=== PATIENT | female | born 1950 | race Caucasian/White ===

== ENCOUNTER 2017-02-26 14:35 | Day surgery (SDC) | payer BC, OTHER ==
[2017-02-18 14:18] VITALS: BP 142/95
[~2017-02-26] VITALS: Ht 157.5 cm; Wt 69.0 kg
[~2017-02-26 14:35] MED LIST: ATOR20TA9 PO; BUPIVACAINE/PF 0.5% ONE; CEFAZOLIN 1,000 MG ONE; CHOL5000 PO; DEXAMETHASONE 4 MG/ML, 1ML ONE; DICL100G19 TD; EPINEPHRINE 1 MG/ML, 1ML ONE; ESTR-22 TD; ESTR1TAB13 PO; FAMO-79 PO; HYDR-3237 PO; KETOROLAC 30 MG/1 ML ONE; LIDOCAINE/PF 1%, 30ML ONE; LISI5TAB7 PO; LORA10TA75 PO; LOSA25TA5 PO; MELO15TA6 PO; METO25TA35 PO; METOPROLOL 1 MG/ML, 5ML ONE; NAPR220C2 PO; OMEG1CAP24 PO; OMEP-110 PO; ONDANSETRON 2MG/ML, 2ML ONE; PROPOFOL 10 MG/ML, 20ML ONE; SULF1TAB24 PO
[2017-02-26] MEDS ORDERED: LACTATED RINGERS 1,000 ML IV SCH (15:17)
[2017-02-26] MEDS ORDERED: FENTANYL PF 100 MCG/2ML ONE ×3 (15:57→17:33)
[2017-02-26] MEDS ORDERED: MIDAZOLAM 1 MG/ML, 2ML ONE (15:57)
[2017-02-26] MEDS ORDERED: NAPROXEN 500 MG TABLET PO PRN (16:30)
[2017-02-26] MEDS ORDERED: hydrALAzine 20 MG/ML, 1ML IV PRN (17:30)
[2017-02-26] MEDS ORDERED: HYDROmorphone 1 MG/ML, 1ML IV PRN (17:30)
[2017-02-26] MEDS ORDERED: HYDROcodone/APAP 7.5-325MG/15ML UDC PO PRN (17:30)
[2017-02-26] MEDS ORDERED: MEPERIDINE/PF 25MG/0.5ML IVPush PRN (17:30)
[2017-02-26] MEDS ORDERED: DIAZEPAM 5 MG/ML, 2ML IVPush PRN (17:30)
[2017-02-26] MEDS ORDERED: PROMETHAZINE 25 MG/ML, 1ML IV PRN (17:30)
[2017-02-26] MEDS ORDERED: MIDAZOLAM 1 MG/ML, 2ML IV PRN (17:30)
[2017-02-26] MEDS ORDERED: ONDANSETRON 2MG/ML, 2ML IVPush PRN (17:30)
[2017-02-26] MEDS ORDERED: ALBUTEROL SULFATE 2.5 MG/3 ML NPPB PRN (17:30)
[2017-02-26] MEDS ORDERED: METOPROLOL 1 MG/ML, 5ML IV PRN (17:30)
[2017-02-26] MEDS ORDERED: LABETALOL 5MG/ML, 20ML IV PRN (17:30)
[2017-02-26] MEDS ORDERED: EPHEDRINE 50 MG/ML, 1ML IVPush PRN (17:30)
[2017-02-26] MEDS ORDERED: ACETAMINOPHEN 325 MG TABLET PO PRN (17:30)
[2017-02-26] MEDS ORDERED: MEPERIDINE/PF 25MG/0.5ML ONE (17:33)
[2017-02-26] MEDS ORDERED: HYDROcodone/APAP 7.5-325MG/15ML UDC ONE (17:34)
[2017-02-26] MEDS: FENTANYL PF 100 MCG/2ML IV PRN ×2 (17:50→17:58)
[2017-02-26 19:13] VITALS: BP 151/95
[2017-02-26] MEDS ORDERED: HYDR-879 PO (19:21)
[2017-02-27] MEDS ORDERED: LORATADINE 10 MG TABLET PO SCH (09:00)
[2017-02-27] MEDS ORDERED: ESTRADIOL HOMEMEDPO SCH (09:00)
[2017-02-27] MEDS ORDERED: CHOLECALCIFEROL 1,000 UNIT TABLET PO SCH (09:00)
[2017-02-27] MEDS ORDERED: ATORVASTATIN 20 MG TABLET PO SCH (09:00)
[2017-02-27] MEDS ORDERED: NORETHINDRONE ACET HOMEMEDPO SCH (09:00)
[2017-02-27] MEDS ORDERED: LOSARTAN 25MG TABLET PO SCH (09:00)
[2017-02-27] MEDS ORDERED: FAMOTIDINE 20 MG TABLET PO SCH (09:00)
[2017-02-27] MEDS ORDERED: METOPROLOL SUCCINATE 25 MG TAB.ER.24H PO SCH (09:00)
== END 2017-02-26 20:40 | disposition home or self-care (01) ==
LOC: OR 14:35 → 4NOR 18:21 → OR 20:40
PROVIDERS: ATTEND Orthopaedic Surgery
DX: S83.241A Other tear of medial meniscus, current injury, right knee, initial encounter (principal); S83.281A Other tear of lateral meniscus, current injury, right knee, initial encounter; S83.232A Complex tear of medial meniscus, current injury, left knee, initial encounter; S83.282A Other tear of lateral meniscus, current injury, left knee, initial encounter; M94.262 Chondromalacia, left knee; M94.261 Chondromalacia, right knee; M17.0 Bilateral primary osteoarthritis of knee; K21.9 Gastro-esophageal reflux disease without esophagitis; I10 Essential (primary) hypertension; Z91.09 Other allergy status, other than to drugs and biological substances; Z88.8 Allergy status to other drugs, medicaments and biological substances; Z88.6 Allergy status to analgesic agent; X58.XXXA Exposure to other specified factors, initial encounter; Y93.89 Activity, other specified; Y92.89 Other specified places as the place of occurrence of the external cause; Y99.8 Other external cause status
CPT/HCPCS: 29880; 93005; J0690; J1100; J1885; J2175; J2250; J2405; J2704; J3010; J3490; J7120; J0171

== ENCOUNTER → 2018-07-30 | Outpatient (CLI) | payer BC ==
[~2018-07-30] MED LIST changes: +ASPI-650 PO; +ATOR20TA37 PO; -ATOR20TA9 PO; -BUPIVACAINE/PF 0.5% ONE; -CEFAZOLIN 1,000 MG ONE; +CHOL10003 PO; -DEXAMETHASONE 4 MG/ML, 1ML ONE; -EPINEPHRINE 1 MG/ML, 1ML ONE; +HYDR-3622 PO; -KETOROLAC 30 MG/1 ML ONE; -LIDOCAINE/PF 1%, 30ML ONE; +LOSA25TA25 PO; -LOSA25TA5 PO; +METO25TA91 PO; -METOPROLOL 1 MG/ML, 5ML ONE; +NITR0.4T SL; -ONDANSETRON 2MG/ML, 2ML ONE; -PROPOFOL 10 MG/ML, 20ML ONE; +SPIR25TA5 PO; +VIT1CAPS11 PO
== END | disposition home or self-care (01) ==
LOC: STAR 15:04
PROVIDERS: ATTEND Orthopaedic Surgery
DX: Z01.818 Encounter for other preprocedural examination (principal); M17.11 Unilateral primary osteoarthritis, right knee
CPT/HCPCS: 87081

== ENCOUNTER 2018-08-07 09:24 | Outpatient (CLI) | payer BC ==
[~2018-08-07] VITALS: Ht 157.5 cm; Wt 67.0 kg
[2018-08-07] MEDS ORDERED: LACTATED RINGERS 1,000 ML IV SCH (09:56)
[2018-08-07 09:59] VITALS: BP 127/86
[2018-08-07] MEDS ORDERED: ACETAMINOPHEN 500 MG TABLET PO ONE (10:00)
[2018-08-07] MEDS ORDERED: GABAPENTIN 300 MG CAPSULE PO ONE (10:00)
[2018-08-07] MEDS ORDERED: BUPIVACAINE/PF-EPI 0.5% 1:200K ONE (10:20)
== END 2018-08-07 23:59 | disposition home or self-care (01) ==
LOC: CLISVCS 09:24 → OUT 09:24 → EDSTATUS 20:30 → CLISVCS 23:59
PROVIDERS: ATTEND Orthopaedic Surgery
DX: M25.561 Pain in right knee (principal); Z53.9 Procedure and treatment not carried out, unspecified reason; Z96.651 Presence of right artificial knee joint; Z88.8 Allergy status to other drugs, medicaments and biological substances; Z91.048 Other nonmedicinal substance allergy status; Z91.09 Other allergy status, other than to drugs and biological substances
CPT/HCPCS: 93005; J2250; J3010

== ENCOUNTER 2018-09-04 10:45 | Observation (INO) | payer BC ==
[~2018-09-04] VITALS: Ht 157.5 cm; Wt 68.5 kg
[~2018-09-04 10:45] MED LIST changes: +ACETAMINOPHEN 500 MG TABLET PO ONE; +DIAZEPAM 5 MG TABLET PO ONE; +GABAPENTIN 300 MG CAPSULE PO ONE; +PLEASE ENTER HEIGHT AND WEIGHT MC SCH
[2018-09-04 11:43] VITALS: BP 146/88
[2018-09-04] MEDS ORDERED: ROPIvacaine/PF 0.5%, 20 ML ONE (12:37)
[2018-09-04] MEDS ORDERED: TRANEXAMIC ACID 100 MG/ML, 10ML ONE (12:37)
[2018-09-04] MEDS ORDERED: LACTATED RINGERS 1,000 ML IV SCH (12:48)
[2018-09-04] MEDS ORDERED: FENTANYL PF 250 MCG/5ML ONE (12:52)
[2018-09-04] MEDS ORDERED: MIDAZOLAM 1 MG/ML, 2ML ONE (12:52)
[2018-09-04] MEDS ORDERED: LIDOCAINE 2%, 6 ML JEL.PF.APP MM ONE (12:53)
[2018-09-04] MEDS ORDERED: ACETAMINOPHEN 500 MG TABLET PO ONE (13:00)
[2018-09-04] MEDS ORDERED: GABAPENTIN 300 MG CAPSULE PO ONE (13:00)
[2018-09-04] MEDS ORDERED: DIAZEPAM 5 MG TABLET PO ONE (13:00)
[2018-09-04] MEDS ORDERED: GLYCOPYRROLATE 0.2MG/1ML, 5ML ONE (13:22)
[2018-09-04] MEDS ORDERED: KETOROLAC 30 MG/1 ML ONE (13:22)
[2018-09-04] MEDS ORDERED: METOPROLOL 1 MG/ML, 5ML ONE (13:22)
[2018-09-04] MEDS ORDERED: ROPIvacaine/PF 0.5%, 20 ML INFIL ONE (13:58)
[2018-09-04] MEDS ORDERED: hydrALAzine 20 MG/ML, 1ML IV PRN (14:00)
[2018-09-04] MEDS ORDERED: ALBUTEROL/IPRATROPIUM 2.5MG/0.5MG, 3 ML NPPB PRN (14:00)
[2018-09-04] MEDS ORDERED: MEPERIDINE/PF 25MG/0.5ML IVPush PRN (14:00)
[2018-09-04] MEDS ORDERED: SCOPOLAMINE PATCH, 1.5MG PATCH.TD72 TD PRN (14:00)
[2018-09-04] MEDS ORDERED: FENTANYL PF 100 MCG/2ML IV PRN (14:00)
[2018-09-04] MEDS ORDERED: HYDROcodone/APAP 7.5-325MG/15ML UDC PO PRN (14:00)
[2018-09-04] MEDS ORDERED: PROMETHAZINE 25 MG/ML, 1ML IV PRN (14:00)
[2018-09-04] MEDS ORDERED: MIDAZOLAM 1 MG/ML, 2ML IV PRN (14:00)
[2018-09-04] MEDS ORDERED: METOPROLOL 1 MG/ML, 5ML IV PRN (14:00)
[2018-09-04] MEDS ORDERED: ONDANSETRON 2MG/ML, 2ML IV PRN (14:00)
[2018-09-04] MEDS ORDERED: HYDROmorphone 2 MG/ML, 1ML IVPush PRN (14:00)
[2018-09-04] MEDS ORDERED: ONDANSETRON 2MG/ML, 2ML ONE (14:18)
[2018-09-04] MEDS ORDERED: DEXAMETHASONE 4 MG/ML, 1ML ONE (14:18)
[2018-09-04] MEDS ORDERED: PROPOFOL 10 MG/ML, 20ML ONE (14:18)
[2018-09-04] MEDS ORDERED: BUPIVACAINE/PF 0.25% ONE (14:18)
[2018-09-04] MEDS ORDERED: CEFAZOLIN 1,000 MG ONE (14:18)
[2018-09-04] MEDS ORDERED: HYDROcodone/APAP 7.5-325MG/15ML UDC ONE (15:27)
[2018-09-04] MEDS ORDERED: FENTANYL PF 100 MCG/2ML ONE (15:27)
[2018-09-04] MEDS ORDERED: LORazepam 2 MG/ML, 1ML IVPush PRN (15:30)
[2018-09-04] MEDS ORDERED: SENNA/DOCUSATE TABLET PO PRN (15:30)
[2018-09-04] MEDS ORDERED: NITROGLYCERIN 0.4 MG BOTTLE (25 TABS) SL PRN (15:30)
[2018-09-04] MEDS ORDERED: HYDROcodone/APAP 5/325 TABLET PO PRN (15:30)
[2018-09-04] MEDS ORDERED: DIAZEPAM 5 MG TABLET PO PRN (15:30)
[2018-09-04] MEDS ORDERED: morphine SULFATE 10 MG/ML, 1ML IVPush PRN (15:30)
[2018-09-04] MEDS: D5%-0.45% NACL 1,000 ML IV SCH (17:29)
[2018-09-04] MEDS: KETOROLAC 30 MG/1 ML IVPush SCH (17:29)
[2018-09-04 20:33] VITALS: BP 113/70
[2018-09-04] MEDS: CEFAZOLIN PMX 1GM/50ML 50 ML IVPB SCH (20:54)
[2018-09-04] MEDS: ASPIRIN 325 MG TABLET EC PO SCH (20:55)
[2018-09-04] MEDS: DOCUSATE 100 MG CAPSULE PO SCH (20:55)
[2018-09-04] MEDS: HYDROcodone/APAP 10/325 MG TABLET PO SCH (20:55)
[2018-09-05 00:04] VITALS: BP 127/74
[2018-09-05] MEDS: D5%-0.45% NACL 1,000 ML IV SCH ×2 (01:11→09:39)
[2018-09-05] MEDS: KETOROLAC 30 MG/1 ML IVPush SCH ×2 (02:11→09:35)
[2018-09-05] MEDS: HYDROcodone/APAP 10/325 MG TABLET PO SCH ×2 (03:00→09:00)
[2018-09-05 04:00] VITALS: BP 122/79
[2018-09-05] MEDS: CEFAZOLIN PMX 1GM/50ML 50 ML IVPB SCH (04:45)
[2018-09-05 07:23] VITALS: BP 105/61
[2018-09-05] MEDS: ASPIRIN 325 MG TABLET EC PO SCH (08:43)
[2018-09-05] MEDS: DOCUSATE 100 MG CAPSULE PO SCH (08:43)
[2018-09-05] MEDS ORDERED: METOPROLOL SUCCINATE 25 MG TAB.ER.24H PO SCH (09:00)
[2018-09-05] MEDS ORDERED: LOSARTAN 25MG TABLET PO SCH (09:00)
[2018-09-05] MEDS ORDERED: SPIRONOLACTONE 25 MG TABLET PO SCH (09:00)
[2018-09-05] MEDS ORDERED: OMEPRAZOLE 20 MG CAPSULE.DR PO SCH (09:00)
[2018-09-05] MEDS ORDERED: CHOLECALCIFEROL 1,000 UNIT TABLET PO SCH (09:00)
== END 2018-09-05 13:55 | disposition home or self-care (01) ==
LOC: OUT 10:45 → ORIP 15:11 → 4NOR 16:19 → DCLOUNGE 09-05 13:47
PROVIDERS: ADMIT Orthopaedic Surgery; ATTEND Orthopaedic Surgery
DX: M17.11 Unilateral primary osteoarthritis, right knee (principal)
CPT/HCPCS: 27447; 73560; 96365; 96366; 96375; 96376; 97161; 97166; 97535; C1713; C1776; G0378; J0690; J1100; J1885; J2250; J2405; J2704; J2795; J3010; J3490; J7120